=== PATIENT | female | born 1970 | race Caucasian/White ===

== ENCOUNTER 2024-10-07 17:43 | Emergency (ER) | payer MEDICAID ==
[~2024-10-07] VITALS: Ht 172.7 cm; Wt 90.5 kg
[2024-10-07 17:48] VITALS: BP 153/81; PULSE 90; RESP 18; TEMP 98.2; O2SAT 99
[2024-10-07] MEDS ORDERED: OMEP-148 PO (17:54)
[2024-10-07] MEDS ORDERED: SEMA1.7P SQ (17:54)
[2024-10-07] MEDS ORDERED: AMLO-257 PO (17:54)
[2024-10-07] MEDS ORDERED: SEMA1PEN5 SQ (18:03)
[2024-10-07] MEDS ORDERED: CLOT15CR23 TP (18:03)
[2024-10-07] MEDS ORDERED: OMEP40CA21 PO (18:03)
[2024-10-07] MEDS ORDERED: LOSA-382 PO (18:03)
[2024-10-07] MEDS ORDERED: LIDO700A30 TD (18:03)
[2024-10-07] MEDS ORDERED: SERT-158 PO (18:03)
== END 2024-10-07 22:05 | disposition left against medical advice (07) ==
LOC: EMS 17:50
DX: R11.2 Nausea with vomiting, unspecified (principal); Z53.21 Procedure and treatment not carried out due to patient leaving prior to being seen by health care provider